=== PATIENT | male | born 1945 | race Caucasian/White ===

== ENCOUNTER 2018-08-01 12:29 | Inpatient (IN) | payer MEDICARE ==
[~2018-08-01] VITALS: Ht 180.3 cm; Wt 82.1 kg
--- NOTE | ~2018-08-01 | MORECARE ---
CASE MANAGEMENT DISCHARGE SUMMARY PATIENT: SPENSER WILL UNIT: [id number] ADM DATE: 08/02/18 AGE: 72 : 41 SEX: M ROOM/BED: D.2303 AUTHOR: EVANGELINA,DOC PHYSICIAN: REFERRING PHYSICIAN: SHELLI JAY MD DATE OF SERVICE: 08/11/18 Discharge Plan Patient Name: SPENSER WILL Facility: [facility]:[place] : 1945 Planned Disposition: Correction Facility Anticipated Discharge Date: Discharge Date: 08/09/2018 Expected LOS: Initial Reviewer: [email or web address] Initial Review Date: 08/06/2018 Generated: 08/11/18 11:17 am Comments DCP- Discharge Planning Updated by [email or web address]: Francine Vernon on 08/06/18 8:[address] Patient Name: SPENSER WILL Admission Status: Elective Accout number: [id number] Admission Date: 08-02-2018 : 1945 Admission Diagnosis:NAUSEA WITH VOMITING, UNSPECIFIED Attending: SHELLI JAY Current LOS: 4 Anticipated DC Date: Planned Disposition: Correction Facility Primary Insurance: MEDICARE A & B Discharge Planning Comments: CM met with patient after obtaining verbal consent. Patient states he plans on returning to skilled nursing [facility] [phone]. Patient denies any discharge needs at this time. CM will continue to follow and assist as needed for discharge planning / needs. Type Bar And Segment Assembler: Francine Vernon DCPIA - Discharge Planning Initial Assessment Updated by [email or web address]: Francine Vernon on 08/06/18 9:20 pm * Is the patient Alert and Oriented? Yes * How many steps to enter\exit or inside your home? 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 N/A * Community resources currently utilized None * Additional services required to return to the preadmission environment? No * Can the patient safely return to the preadmission environment? Yes * Has this patient been hospitalized within the prior 30 days at any hospital? No Last DP export: 08/06/18 8:27 Patient Name: SPENSER WILL Page [id number] at 1017 All edits/amendments must be made on the electronic document DICTATION DATE: 08/11/18 1017 PIANO REFINISHER: PACHECO 08/11/18 1017 RPT#: [id number] DC DATE:08/09/18 STATUS: DIS IN [facility] [address] [place] [address] END OF REPORT
--- NOTE | ~2018-08-01 | MORECARE ---
CASE MANAGEMENT DISCHARGE SUMMARY PATIENT: SPENSER WILL UNIT: [id number] ADM DATE: 08/02/18 AGE: 72 : 41 SEX: M ROOM/BED: D.1212 AUTHOR: EVANGELINA,DOC PHYSICIAN: REFERRING PHYSICIAN: SHELLI JAY MD DATE OF SERVICE: 08/06/18 Discharge Plan Patient Name: SPENSER WILL Facility: [facility]:[place] : 1945 Planned Disposition: Assisted Facility Anticipated Discharge Date: Discharge Date: Expected LOS: Initial Reviewer: [email or web address] Initial Review Date: 08/06/2018 Generated: 08/06/18 10:27 pm Comments DCP- Discharge Planning Updated by [email or web address]: Francine Vernon on 08/06/18 8:[address] Patient Name: SPENSER WILL Admission Status: Elective Accout number: [id number] Admission Date: 08-02-2018 : 1945 Admission Diagnosis:NAUSEA WITH VOMITING, UNSPECIFIED Attending: SHELLI JAY Current LOS: 4 Anticipated DC Date: Planned Disposition: Assisted Facility Primary Insurance: MEDICARE A & B Discharge Planning Comments: CM met with patient after obtaining verbal consent. Patient states he plans on returning to detention [facility] [phone]. Patient denies any discharge needs at this time. CM will continue to follow and assist as needed for discharge planning / needs. Perianesthesia Rn: Francine Vernon DCPIA - Discharge Planning Initial Assessment Updated by [email or web address]: Francine Vernon on 08/06/18 9:20 pm * Is the patient Alert and Oriented? Yes * How many steps to enter\exit or inside your home? * PCP [facility] physician * Pharmacy [facility] * Preadmission Environment [facility] * Facility Name [facility] * ADLs Partial Dependent * Partial ADLs (Assistance needed) Ambulation * List name and contact numbers for known caregivers / representatives who currently or will assist patient after discharge: lives at [facility] [phone] * Verbal permission to speak to the caregivers and representatives has been obtained from the patient. N/A * Community resources currently utilized None * Additional services required to return to the preadmission environment? No * Can the patient safely return to the preadmission environment? Yes * Has this patient been hospitalized within the prior 30 days at any hospital? No Last DP export: 08/06/18 8:21 Patient Name: SPENSER WILL Page [id number] at 2126 All edits/amendments must be made on the electronic document DICTATION DATE: 08/06/182126 MOTOR MAN: PACHEOC 08/06/182126 RPT#: [id number] DC DATE: STATUS: ADM IN [facility] [address] [place] [address] END OF REPORT
--- NOTE | ~2018-08-01 | MORECARE ---
CASE MANAGEMENT DISCHARGE SUMMARY PATIENT: SPENSER WILL UNIT: [id number] ADM DATE: 08/02/18 AGE: 72 : 43 SEX: M ROOM/BED: D.1212 AUTHOR: CJ HUTCHINSON PHYSICIAN: REFERRING PHYSICIAN: SHELLI JAY MD DATE OF SERVICE: 08/06/18 Discharge Plan Patient Name: SPENSER WILL Facility: [facility]:[place] : 1945 Planned Disposition: Group Home Facility Anticipated Discharge Date: Discharge Date: Expected LOS: Initial Reviewer: [email or web address] Initial Review Date: 08/06/2018 Generated: 08/06/18 10:21 pm DCPIA - Discharge Planning Initial Assessment Updated by [email or web address]: Francine Vernon on 08/06/18 9:20 pm * Is the patient Alert and Oriented? Yes * How many steps to enter\exit or inside your home? 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 N/A * Community resources currently utilized None * Additional services required to return to the preadmission environment? No * Can the patient safely return to the preadmission environment? Yes * Has this patient been hospitalized within the prior 30 days at any hospital? No Patient Name: SPENSER WILL Page [id number] at 2121 All edits/amendments must be made on the electronic document DICTATION DATE: 08/06/182119 DIRECTOR FIXED INCOME: PACHECO 08/06/182119 RPT#: [id number] DC DATE: STATUS: ADM IN [facility] [address] [place] [address] END OF REPORT
[2018-08-01] MEDS ORDERED: LIPITOR80 MG PO (12:34)
[2018-08-01] MEDS ORDERED: CELEXA20 MG PO (12:35)
[2018-08-01] MEDS ORDERED: CARDURA2 MG PO (12:35)
[2018-08-01] MEDS ORDERED: ZYRTEC10 MG PO (12:35)
[2018-08-01] MEDS ORDERED: FLOMAX0.4 MG PO (12:36)
[2018-08-01] MEDS ORDERED: TOVIAZ8 MG PO (12:36)
[2018-08-01] MEDS ORDERED: MIRALAX17 GM PO (12:41)
[2018-08-01] MEDS ORDERED: REMERON30 MG PO (12:41)
[2018-08-01] MEDS ORDERED: OMEPRAZOLE20 M1 PO (12:42)
[2018-08-01] MEDS ORDERED: SYMBICORT 16010.2 GM INH (12:43)
[2018-08-01] MEDS ORDERED: STOOL SOFTENER100 M1 PO (12:43)
[2018-08-01] MEDS ORDERED: DOXYCYCLINE HY100 M2 PO (12:44)
[2018-08-01] MEDS ORDERED: FERROUS SULFAT140 MG PO (12:45)
[2018-08-01] MEDS ORDERED: GLUCOPHAGE1000 MG PO (12:46)
[2018-08-01] MEDS ORDERED: FLORANEX / LACT1 TAB PO (12:46)
[2018-08-01] MEDS ORDERED: GLUCOPHAGE500 MG PO (12:47)
[2018-08-01] MEDS ORDERED: PRINIVIL20 MG PO (12:47)
[2018-08-01] MEDS ORDERED: RANITIDINE HCL150 M1 PO (12:49)
[2018-08-01] MEDS ORDERED: METOPROLOL TART50 MG PO (12:49)
[2018-08-01] MEDS ORDERED: HYDRALAZINE HCL50 MG PO (12:50)
[2018-08-01] MEDS ORDERED: REGLAN5 MG PO (12:52)
[2018-08-01] MEDS ORDERED: CYCLOBENZAPRINE5 MG PO (12:54)
[2018-08-01] MEDS ORDERED: CATAPRES0.1 MG PO (12:54)
[2018-08-01] MEDS ORDERED: NORCO 10-325 TA1 TAB PO (12:55)
[2018-08-01] MEDS ORDERED: IMODIUM2 MG PO (12:56)
[2018-08-01] MEDS ORDERED: NITROQUICK0.4 MG SL (12:56)
[2018-08-01] MEDS ORDERED: ONDANSETRON4 MG/2 M3 IM (12:57)
[2018-08-01] MEDS ORDERED: PHENERGAN25 M1 PO (12:58)
[2018-08-01] MEDS ORDERED: ZOFRAN4 MG PO (12:58)
[2018-08-01] MEDS ORDERED: HYDROCORTISONE30 G8 TOPICAL (13:00)
[2018-08-01] MEDS ORDERED: LANTUS INSULIN SC (13:01)
[2018-08-01 13:20] VITALS: BP 203/93; BMI 25.3
[2018-08-01 14:57] LABS: BASOPHILS 0.2 % (0-2); EOSINOPHILS 0.3 % (0-7); HEMOGLOBIN 9.7 g/dL (13.5-17.5); IMMATURE GRANULOCYTES 0.2 % (0-5); LYMPHOCYTES 8.3 % (15-50); MCH 24.4 pg (26.0-34.0); MCHC 31.3 g/dL (31.0-37.0); MCV 77.9 fL (80.0-100.0); MEAN PLATELET VOLUME 9.9 fL (7.4-10.4); MONOCYTES 2.7 % (2-11); NEUTROPHILS 88.3 % (40-80); PLATELET COUNT 266 10x3/uL (130-400); RBC 3.98 10x6/uL (4.20-6.10); WBC 5.9 10x3/uL (4.8-10.8)
[2018-08-01 15:22] LABS: CALC OSMOLALITY 278 mosm/kg (275-300); CALCIUM 9.2 mg/dL (8.5-10.1); CARBON DIOXIDE 28.8 mmol/L (21.0-32.0); CHLORIDE - SERUM 103 mmol/L (98-107); CREATININE - SERUM 0.6 mg/dL (0.6-1.3); GLUCOSE 105 mg/dL (74-106); POTASSIUM - SERUM 3.7 mmol/L (3.5-5.1); SODIUM 140 mmol/L (136-145); THYROID STIMULATING HORMONE 0.18 uIU/mL (0.36-3.74); UREA NITROGEN 13 mg/dL (7-18); eGFR NON AFRICAN AMERICAN > 90 mL/min (90-120)
[2018-08-01 16:07] LABS: MAGNESIUM - SERUM 1.7 mg/dL (1.8-2.4); PHOSPHOROUS 3.3 mg/dL (2.5-4.9)
[2018-08-01 16:19] VITALS: BP 190/94
[2018-08-01 19:40] VITALS: BP 154/60
[2018-08-02] VITALS: BP 171/82
[2018-08-02 04:00] VITALS: BP 193/95
[2018-08-02 05:37] LABS: BASOPHILS 0.2 % (0-2); EOSINOPHILS 1.6 % (0-7); HEMATOCRIT 30.2 % (42.0-54.0); HEMOGLOBIN 9.3 g/dL (13.5-17.5); LYMPHOCYTES 18.4 % (15-50); MCH 23.9 pg (26.0-34.0); MCHC 30.8 g/dL (31.0-37.0); MCV 77.6 fL (80.0-100.0); MEAN PLATELET VOLUME 9.4 fL (7.4-10.4); MONOCYTES 6.7 % (2-11); NEUTROPHILS 73.1 % (40-80); PLATELET COUNT 239 10x3/uL (130-400); RBC 3.89 10x6/uL (4.20-6.10); RDW 16.2 % (11.5-14.5); WBC 4.9 10x3/uL (4.8-10.8)
[2018-08-02 06:04] LABS: ALBUMIN 2.4 g/dL (3.4-5.0); ALKALINE PHOSPHATASE 81 U/L (46-116); ALT (SGPT) 8 U/L (10-68); AMYLASE - SERUM 16 U/L (25-115); BILIRUBIN - TOTAL 0.32 mg/dL (0.2-1.3); CALC OSMOLALITY 276 mosm/kg (275-300); CALCIUM 8.7 mg/dL (8.5-10.1); CARBON DIOXIDE 29.4 mmol/L (21.0-32.0); CHLORIDE - SERUM 104 mmol/L (98-107); CREATININE - SERUM 0.5 mg/dL (0.6-1.3); GLUCOSE 78 mg/dL (74-106); LIPASE 64 U/L (73-393); POTASSIUM - SERUM 3.2 mmol/L (3.5-5.1); PROTEIN - SERUM 6.1 g/dL (6.4-8.2); SODIUM 139 mmol/L (136-145); UREA NITROGEN 13 mg/dL (7-18); eGFR NON AFRICAN AMERICAN > 90 mL/min (90-120)
[2018-08-02 07:16] VITALS: BP 186/76
[2018-08-02 10:35] VITALS: BP 173/81
[2018-08-02 13:18] VITALS: BMI 25.2
[2018-08-02 19:47] VITALS: BP 177/77
[2018-08-03] VITALS: BP 155/72
[2018-08-03 04:00] VITALS: BP 165/76
[2018-08-03 07:07] LABS: BASOPHILS 0.5 % (0-2); EOSINOPHILS 4.6 % (0-7); HEMATOCRIT 29.6 % (42.0-54.0); HEMOGLOBIN 9.1 g/dL (13.5-17.5); LYMPHOCYTES 20.7 % (15-50); MCHC 30.7 g/dL (31.0-37.0); MCV 78.1 fL (80.0-100.0); MEAN PLATELET VOLUME 10.2 fL (7.4-10.4); MONOCYTES 8.5 % (2-11); NEUTROPHILS 65.7 % (40-80); PLATELET COUNT 271 10x3/uL (130-400); RBC 3.79 10x6/uL (4.20-6.10); RDW 16.3 % (11.5-14.5); WBC 4.4 10x3/uL (4.8-10.8)
[2018-08-03 07:09] VITALS: BP 176/71
[2018-08-03 07:30] LABS: ALBUMIN 2.2 g/dL (3.4-5.0); ALKALINE PHOSPHATASE 76 U/L (46-116); ALT (SGPT) 7 U/L (10-68); BILIRUBIN - TOTAL 0.22 mg/dL (0.2-1.3); CALC OSMOLALITY 277 mosm/kg (275-300); CALCIUM 8.1 mg/dL (8.5-10.1); CARBON DIOXIDE 30.9 mmol/L (21.0-32.0); CHLORIDE - SERUM 105 mmol/L (98-107); CHOLESTEROL, TOTAL 56 mg/dL (0-200); CREATININE - SERUM 0.7 mg/dL (0.6-1.3); GLUCOSE 85 mg/dL (74-106); HDL CHOLESTEROL 28 mg/dL (32-96); LDL CHOLESTEROL 18 mg/dL (0-100); LDL-HDL RATIO 0.6 ratio (1.5-3.5); MAGNESIUM - SERUM 1.7 mg/dL (1.8-2.4); PHOSPHOROUS 2.5 mg/dL (2.5-4.9); POTASSIUM - SERUM 3.7 mmol/L (3.5-5.1); PRO BNP 3146 pg/mL (0-125); PROTEIN - SERUM 5.9 g/dL (6.4-8.2); SODIUM 140 mmol/L (136-145); TRIGLYCERIDE 54 mg/dL (30-200); UREA NITROGEN 12 mg/dL (7-18); eGFR NON AFRICAN AMERICAN > 90 mL/min (90-120)
[2018-08-03 10:52] VITALS: BP 160/72
[2018-08-03 14:53] VITALS: BP 177/81
[2018-08-03 18:58] VITALS: BP 144/81
[2018-08-04] VITALS (7 sets, daily range): BP systolic 155–185; BP diastolic 77–91; Ht 180.3 cm; Wt 82.1 kg
[2018-08-04 06:19] LABS: BASOPHILS 0 % (0-2); EOSINOPHILS 0 % (0-7); HEMATOCRIT 30.7 % (42.0-54.0); HEMOGLOBIN 9.6 g/dL (13.5-17.5); LYMPHOCYTES 14.9 % (15-50); MCH 24.2 pg (26.0-34.0); MCHC 31.3 g/dL (31.0-37.0); MCV 77.5 fL (80.0-100.0); MEAN PLATELET VOLUME 10.1 fL (7.4-10.4); MONOCYTES 1.2 % (2-11); NEUTROPHILS 83.9 % (40-80); PLATELET COUNT 261 10x3/uL (130-400); RBC 3.96 10x6/uL (4.20-6.10); RDW 15.9 % (11.5-14.5)
[2018-08-04 06:46] LABS: CALCIUM 8.8 mg/dL (8.5-10.1); CARBON DIOXIDE 29.3 mmol/L (21.0-32.0); CHLORIDE - SERUM 100 mmol/L (98-107); CREATININE - SERUM 0.6 mg/dL (0.6-1.3); MAGNESIUM - SERUM 2.1 mg/dL (1.8-2.4); PHOSPHOROUS 2.6 mg/dL (2.5-4.9); PRO BNP 2763 pg/mL (0-125); SODIUM 135 mmol/L (136-145); eGFR NON AFRICAN AMERICAN > 90 mL/min (90-120)
[2018-08-04 06:48] LABS: WBC 3.2 10x3/uL (4.8-10.8)
[2018-08-04 06:49] LABS: CALC OSMOLALITY 276 mosm/kg (275-300); GLUCOSE 209 mg/dL (74-106); POTASSIUM - SERUM 4.4 mmol/L (3.5-5.1); UREA NITROGEN 16 mg/dL (7-18)
[2018-08-05] VITALS (7 sets, daily range): BP systolic 167–205; BP diastolic 63–92
[2018-08-05 07:17] LABS: BASOPHILS 0 % (0-2); CALC OSMOLALITY 275 mosm/kg (275-300); CARBON DIOXIDE 29.1 mmol/L (21.0-32.0); CHLORIDE - SERUM 101 mmol/L (98-107); CREATININE - SERUM 0.5 mg/dL (0.6-1.3); EOSINOPHILS 0 % (0-7); GLUCOSE 191 mg/dL (74-106); HEMATOCRIT 32.5 % (42.0-54.0); IMMATURE GRANULOCYTES 0.2 % (0-5); MCH 24.2 pg (26.0-34.0); MCHC 30.8 g/dL (31.0-37.0); MCV 78.7 fL (80.0-100.0); MEAN PLATELET VOLUME 11.2 fL (7.4-10.4); MONOCYTES 1.5 % (2-11); NEUTROPHILS 90.3 % (40-80); POTASSIUM - SERUM 4.4 mmol/L (3.5-5.1); RBC 4.13 10x6/uL (4.20-6.10); RDW 16.5 % (11.5-14.5); SODIUM 135 mmol/L (136-145); UREA NITROGEN 14 mg/dL (7-18); eGFR NON AFRICAN AMERICAN > 90 mL/min (90-120)
[2018-08-05 07:18] LABS: PLATELET COUNT 126 10x3/uL (130-400); WBC 6.6 10x3/uL (4.8-10.8)
[2018-08-06] VITALS: BP 168/82
[2018-08-06 04:00] VITALS: BP 161/77
[2018-08-06 07:47] LABS: BASOPHILS 0 % (0-2); EOSINOPHILS 0 % (0-7); HEMATOCRIT 31.3 % (42.0-54.0); HEMOGLOBIN 9.7 g/dL (13.5-17.5); IMMATURE GRANULOCYTES 0.2 % (0-5); LYMPHOCYTES 5.7 % (15-50); MCV 77.5 fL (80.0-100.0); MEAN PLATELET VOLUME 10.3 fL (7.4-10.4); MONOCYTES 1.7 % (2-11); NEUTROPHILS 92.4 % (40-80); RBC 4.04 10x6/uL (4.20-6.10); RDW 16.6 % (11.5-14.5); WBC 6.5 10x3/uL (4.8-10.8)
[2018-08-06 07:49] LABS: PLATELET COUNT 294 10x3/uL (130-400)
[2018-08-06 08:02] LABS: CALC OSMOLALITY 274 mosm/kg (275-300); CALCIUM 8.8 mg/dL (8.5-10.1); CARBON DIOXIDE 31.4 mmol/L (21.0-32.0); CHLORIDE - SERUM 101 mmol/L (98-107); CREATININE - SERUM 0.6 mg/dL (0.6-1.3); GLUCOSE 190 mg/dL (74-106); POTASSIUM - SERUM 4.7 mmol/L (3.5-5.1); SODIUM 134 mmol/L (136-145); eGFR NON AFRICAN AMERICAN > 90 mL/min (90-120)
[2018-08-06 08:03] LABS: UREA NITROGEN 18 mg/dL (7-18)
[2018-08-06 08:04] VITALS: BP 171/82
[2018-08-06 11:32] VITALS: BP 164/84
[2018-08-06 17:37] VITALS: BP 124/70
[2018-08-06 19:00] VITALS: BP 147/76
[2018-08-07 05:06] VITALS: BP 174/86
[2018-08-07 06:46] LABS: BASOPHILS 0 % (0-2); EOSINOPHILS 0 % (0-7); HEMATOCRIT 30.1 % (42.0-54.0); HEMOGLOBIN 9.4 g/dL (13.5-17.5); IMMATURE GRANULOCYTES 0.2 % (0-5); LYMPHOCYTES 4.9 % (15-50); MCH 24.1 pg (26.0-34.0); MCHC 31.2 g/dL (31.0-37.0); MCV 77.2 fL (80.0-100.0); MONOCYTES 2.7 % (2-11); NEUTROPHILS 92.2 % (40-80); PLATELET COUNT 254 10x3/uL (130-400); RDW 16.7 % (11.5-14.5); WBC 5.7 10x3/uL (4.8-10.8)
[2018-08-07 07:05] LABS: CALC OSMOLALITY 274 mosm/kg (275-300); CALCIUM 8.6 mg/dL (8.5-10.1); CARBON DIOXIDE 30.1 mmol/L (21.0-32.0); CHLORIDE - SERUM 98 mmol/L (98-107); CREATININE - SERUM 0.6 mg/dL (0.6-1.3); GLUCOSE 215 mg/dL (74-106); POTASSIUM - SERUM 5.1 mmol/L (3.5-5.1); SODIUM 133 mmol/L (136-145); UREA NITROGEN 22 mg/dL (7-18); eGFR NON AFRICAN AMERICAN > 90 mL/min (90-120)
[2018-08-07 07:34] VITALS: BP 157/64
[2018-08-07 11:18] VITALS: BP 113/61
[2018-08-07 15:57] VITALS: BP 175/78
[2018-08-07 20:00] VITALS: BP 185/82
[2018-08-08] VITALS (12 sets, daily range): BP systolic 131–204; BP diastolic 78–98
[2018-08-08 06:43] LABS: BASOPHILS 0 % (0-2); EOSINOPHILS 0 % (0-7); HEMATOCRIT 32.1 % (42.0-54.0); HEMOGLOBIN 10.1 g/dL (13.5-17.5); IMMATURE GRANULOCYTES 0.6 % (0-5); LYMPHOCYTES 3.9 % (15-50); MCH 24.3 pg (26.0-34.0); MCHC 31.5 g/dL (31.0-37.0); MCV 77.2 fL (80.0-100.0); MEAN PLATELET VOLUME 10.7 fL (7.4-10.4); MONOCYTES 2.3 % (2-11); NEUTROPHILS 93.2 % (40-80); PLATELET COUNT 261 10x3/uL (130-400); RBC 4.16 10x6/uL (4.20-6.10); RDW 16.7 % (11.5-14.5); WBC 5.1 10x3/uL (4.8-10.8)
[2018-08-08 06:54] LABS: CALC OSMOLALITY 275 mosm/kg (275-300); CALCIUM 8.6 mg/dL (8.5-10.1); CARBON DIOXIDE 30.5 mmol/L (21.0-32.0); CHLORIDE - SERUM 98 mmol/L (98-107); CREATININE - SERUM 0.6 mg/dL (0.6-1.3); GLUCOSE 201 mg/dL (74-106); POTASSIUM - SERUM 4.5 mmol/L (3.5-5.1); SODIUM 134 mmol/L (136-145); UREA NITROGEN 17 mg/dL (7-18); eGFR NON AFRICAN AMERICAN > 90 mL/min (90-120)
[2018-08-09] VITALS (14 sets, daily range): BP systolic 69–201; BP diastolic 26–103
[2018-08-09 03:54] LABS: CALC OSMOLALITY 275 mosm/kg (275-300); CALCIUM 8.6 mg/dL (8.5-10.1); CARBON DIOXIDE 30.5 mmol/L (21.0-32.0); CHLORIDE - SERUM 100 mmol/L (98-107); CREATININE - SERUM 0.6 mg/dL (0.6-1.3); POTASSIUM - SERUM 4.3 mmol/L (3.5-5.1); SODIUM 136 mmol/L (136-145); UREA NITROGEN 20 mg/dL (7-18); eGFR NON AFRICAN AMERICAN > 90 mL/min (90-120)
[2018-08-09 04:02] LABS: GLUCOSE 124 mg/dL (74-106)
[2018-08-09 04:07] LABS: BASOPHILS 0 % (0-2); EOSINOPHILS 0 % (0-7); HEMATOCRIT 32.1 % (42.0-54.0); HEMOGLOBIN 10.2 g/dL (13.5-17.5); IMMATURE GRANULOCYTES 0.2 % (0-5); LYMPHOCYTES 3.7 % (15-50); MCH 24.3 pg (26.0-34.0); MCHC 31.8 g/dL (31.0-37.0); MCV 76.6 fL (80.0-100.0); MEAN PLATELET VOLUME 10.6 fL (7.4-10.4); MONOCYTES 2.7 % (2-11); NEUTROPHILS 93.4 % (40-80); PLATELET COUNT 264 10x3/uL (130-400); RBC 4.19 10x6/uL (4.20-6.10)
[2018-08-09 04:08] LABS: WBC 9.5 10x3/uL (4.8-10.8)
== END 2018-08-09 16:25 | DRG 25 ==
LOC: D.M3 12:29 → OBSVTIME 12:31 → D.SDCHOLD 08-02 11:19 → D.M3 08-02 11:19 → D.SDCHOLD 08-08 11:47 → D.ICU 08-08 15:05
PROVIDERS: Family Medicine; Internal Medicine Gastroenterology; Internal Medicine Pulmonary Disease; Neurological Surgery
PROC: 00BC0ZZ Excision of Cerebellum, Open Approach (ICD-10-PCS; principal; 2018-08-08 10:00)
DX: C79.31 Secondary malignant neoplasm of brain (principal); J18.9 Pneumonia, unspecified organism; R40.2114 Coma scale, eyes open, never, 24 hours or more after hospital admission; G93.6 Cerebral edema; C34.90 Malignant neoplasm of unspecified part of unspecified bronchus or lung; J44.1 Chronic obstructive pulmonary disease with (acute) exacerbation; J44.0 Chronic obstructive pulmonary disease with (acute) lower respiratory infection; E44.0 Moderate protein-calorie malnutrition; I97.821 Postprocedural cerebrovascular infarction following other surgery; K59.00 Constipation, unspecified; N40.0 Benign prostatic hyperplasia without lower urinary tract symptoms; F32.9 Major depressive disorder, single episode, unspecified; D50.9 Iron deficiency anemia, unspecified; R51 Headache; E78.5 Hyperlipidemia, unspecified; E87.6 Hypokalemia; E83.42 Hypomagnesemia; Z68.25 Body mass index [BMI] 25.0-25.9, adult; E11.9 Type 2 diabetes mellitus without complications; I11.0 Hypertensive heart disease with heart failure; I50.9 Heart failure, unspecified; K21.9 Gastro-esophageal reflux disease without esophagitis; R40.2354 Coma scale, best motor response, localizes pain, 24 hours or more after hospital admission; R40.2244 Coma scale, best verbal response, confused conversation, 24 hours or more after hospital admission